=== PATIENT | male | born 1955 | race Caucasian/White ===

== ENCOUNTER 2018-03-30 19:38 | Inpatient (IN) | payer OTHER ==
[~2018-03-30] VITALS: Ht 177.8 cm; Wt 94.4 kg
[~2018-03-30 19:38] MED LIST: CELEBREX100 MG PO; CYCLOBENZAPRINE10 MG PO; FERROUS SULFAT325 MG PO; FOLIC ACID1 MG PO; GABAPENTIN400 MG PO; Multivitamins/Minerals PO; PROPRANOLOL HCL40 MG PO; PROTONIX40 MG PO; VIGAMOX3 ML OP; VITAMIN B-1100 MG PO
--- OUTSIDE RECORDS SUMMARY | 2018-03-30 19:40 | XMS REPORT ---
Author Author [facility] Address Unknown Phone Unavailable Care Team Providers Care Explosive Ordnance Disposal Technician Name Role Phone MATEUS LESLIE Unavailable Unavailable Problems This patient has no known problems. Allergies, Adverse Reactions, Alerts This patient has no known allergies or adverse reactions. Medications This patient has no known medications. Results Test Description Test Time Test Comments Text Results Atomic Results Result Comments CHEST 2 VIEWS [place] [address] Patient Name: CITLALY PRATHER MR #: [id number] : 1955 Age/Sex: 62/M Req # : [id number] Adm Physician: Ordered by: MATEUS LESLIE MD Report # : [id number] Location: ER Room/Bed: Procedure: [id number] -[id number] DX/CHEST 2 VIEWS Exam Date: 07/06/17 Exam Time : 1940 REPORT STATUS: Signed Frontal and lateral views of the chest. HISTORY: Anemia, weakness COMPARISON: None available. DISCUSSION: Lungs: Mild prominence of the central peribronchial interstitial markings. No evidence of a consolidative pneumonia or pulmonary alveolar edema. Pleura: No pleural effusion or pneumothorax. Heart and mediastinum: The cardiomediastinal silhouette appears unremarkable. Bones: Accentuation of the thoracic kyphosis and multilevel mild degenerative disc changes. Right convex curvature of the thoracic spine. Other: Diffuse scattered atherosclerotic vascular calcifications. IMPRESSION: 1. Findings which could be seen in the setting of a nonspecific bronchitis. 2. Otherwise, unremarkable. Signed by: Dr. Tasia Swain M.D. on 07/06/2017 8:50 PM Dictated By: TASIA SWAIN DO 47 Transcribed By: REBECCA on 07/06/172049 COPY TO: MATEUS LESLIE MD
[2018-03-30] MEDS ORDERED: PANTOPRAZOLE 40 MG 10ML VIAL IV ONE (19:55)
[2018-03-30] MEDS ORDERED: SODIUM CHLORIDE 0.9% 250ML 250 ML IV ONE (20:00)
[2018-03-30] MEDS ORDERED: FUROSEMIDE INJ 10 MG/ML 2 ML VIAL IV PRN (20:00)
[2018-03-30] MEDS: OCTREOTIDE ACETATE 500 MCG in SODIUM CHLORIDE 0.9% 250ML 250 ML IV SCH (20:25)
[2018-03-30 20:32] LABS: BASOPHILS % 0.4 % (0.0-1.0); EOSINOPHILS # (AUTO) 0.2 (0.0-0.4); EOSINOPHILS % 4.8 % (0.0-6.0); HEMATOCRIT 26.3 % (38.2-49.6); LYMPHOCYTES # (AUTO) 1.2 (1.0-3.2); LYMPHOCYTES % 24.1 % (18.0-39.1); MEAN CORPUSCULAR HEMOGLOBIN 27.1 pg (28-32); MEAN CORPUSCULAR HGB CONC 30.4 g/dL (31-35); MEAN CORPUSCULAR VOLUME 89.2 fL (81-99); MONOCYTES # (AUTO) 0.9 (0.2-0.8); MONOCYTES % 18.6 % (4.4-11.3); NEUTROPHILS # (AUTO) 2.5 (2.1-6.9); NEUTROPHILS % 51.3 % (38.7-80.0); PLATELET COUNT 123 x10e3/uL (140-360); RED BLOOD COUNT 2.95 x10e6/uL (4.3-5.7); RED CELL DISTRIBUTION WIDTH 28.1 % (11.7-14.4)
[2018-03-30 20:38] LABS: INR 1.27; PROTHROMBIN TIME 14.9 seconds (11.9-14.5)
[2018-03-30 20:39] LABS: PARTIAL THROMBOPLASTIN TIME 34.7 seconds (23.8-35.5)
[2018-03-30 20:46] LABS: ALANINE AMINOTRANSFERASE 26 IU/L (0-55); ALBUMIN 3.5 g/dL (3.5-5.0); ALBUMIN/GLOBULIN RATIO 0.7 (0.8-2.0); ALKALINE PHOSPHATASE 63 IU/L (40-150); ANION GAP 13.6 mmol/L (8-16); BLOOD UREA NITROGEN 8 mg/dL (7-26); BUN/CREATININE RATIO 7 (6-25); CARBON DIOXIDE 21 mmol/L (22-29); CHLORIDE 95 mmol/L (98-107); CREATINE KINASE 102 IU/L (30-200); CREATININE, SERUM 1.09 mg/dL (0.72-1.25); EST GLOMERULAR FILTRATION RATE > 60 ML/MIN (60-); GLUCOSE 104 mg/dL (74-118); LIPASE 29 U/L (8-78); MAGNESIUM 1.6 MG/DL (1.3-2.1); POTASSIUM 4.6 mmol/L (3.5-5.1); SODIUM 125 mmol/L (136-145)
--- NOTE | 2018-03-30 20:47 | Diagnostic Imaging Report ---
Portable chest x-ray INDICATION: Upper GI bleed, cirrhosis COMPARISON: Chest x-ray 07/06/2017 FINDINGS: Frontal view of the chest obtained at 2029 hours. The heart is enlarged. The aorta is ectatic. The pulmonary vascular markings are prominent and indistinct. The lungs demonstrate diffuse groundglass airspace opacities. The costophrenic angles are sharp. There is no pneumothorax. The osseous structures are intact and normal in morphology. IMPRESSION: 1. Cardiomegaly. Pericardial effusion cannot be excluded. 2. Pulmonary vascular congestion and mild pulmonary edema. Signed by: Dr. Alex Dunn MD on 03/30/2018 8:43 PM
[2018-03-30] MEDS ORDERED: COLCRYS0.6 MG PO (21:01)
[2018-03-30] MEDS ORDERED: CELEBREX100 MG PO (21:01)
[2018-03-30] MEDS ORDERED: OMEPRAZOLE40 MG PO (21:01)
[2018-03-30] MEDS ORDERED: HYDROXYZINE HCL25 MG PO (21:01)
[2018-03-30] MEDS ORDERED: SPIRONOLACTONE25 MG PO (21:01)
[2018-03-30] MEDS ORDERED: LEVOCETIRIZINE D5 MG PO (21:01)
[2018-03-30] MEDS ORDERED: PANTOPRAZOL 40MG/SOD CHL 0.9% 250 ML IV SCH (21:15)
[2018-03-30] MEDS ORDERED: PHYTONADIONE 10 MG/ML AMP PO STA (21:15)
[2018-03-30 21:23] LABS: ANISOCYTOSIS MARKED; POIKILOCYTOSIS SLIGHT; RBC MORPHOLOGY COMMENT ABNORMAL
[2018-03-30] MEDS ORDERED: SODIUM CHLORIDE 0.9% 1000ML 1,000 ML IV SCH (21:23)
[2018-03-30 21:24] LABS: HYPOCHROMASIA MODERATE
[2018-03-30] MEDS ORDERED: ONDANSETRON HCL 4 MG ORAL DISINTEGRATING TAB PO ONE (21:30)
[2018-03-30] MEDS ORDERED: ONDANSETRON HCL 4 MG ORAL DISINTEGRATING TAB PO PRN (21:30)
[2018-03-30 21:59] LABS: CLARITY,URINE CLEAR (CLEAR); COLOR,URINE YELLOW (YELLOW)
[2018-03-30 22:00] LABS: BILIRUBIN,URINE NEGATIVE (NEGATIVE); KETONES,URINE NEGATIVE (NEGATIVE); LEUKOCYTE ESTERASE ,URINE NEGATIVE (NEGATIVE); NITRITE,URINE NEGATIVE (NEGATIVE); PROTEIN,URINE DIPSTICK NEGATIVE (NEGATIVE); RBC,URINE 0-5 /HPF (0-5); URINE UROBILINOGEN 0.2 mg/dL (0.2 - 1); WBC,URINE (MAN) 0-5 /HPF (0-5)
[2018-03-30] MEDS: PANTOPRAZOL 40MG/SOD CHL 0.9% 50 ML IV SCH (22:40)
[2018-03-30 23:37] VITALS: BP 120/29
[2018-03-30 23:40] VITALS: BP 126/70
[2018-03-30 23:55] VITALS: BP 126/73
[2018-03-31] VITALS (39 sets, daily range): BP systolic 75–149; BP diastolic 28–138
[2018-03-31 01:26] LABS: BASOPHILS % 0.4 % (0.0-1.0); EOSINOPHILS # (AUTO) 0.3 (0.0-0.4); EOSINOPHILS % 6.3 % (0.0-6.0); HEMATOCRIT 22.7 % (38.2-49.6); LYMPHOCYTES # (AUTO) 1.2 (1.0-3.2); LYMPHOCYTES % 24.9 % (18.0-39.1); MEAN CORPUSCULAR HEMOGLOBIN 26.9 pg (28-32); MEAN CORPUSCULAR VOLUME 89.7 fL (81-99); MONOCYTES # (AUTO) 0.9 (0.2-0.8); MONOCYTES % 18.6 % (4.4-11.3); NEUTROPHILS # (AUTO) 2.4 (2.1-6.9); NEUTROPHILS % 49.2 % (38.7-80.0); PLATELET COUNT 106 x10e3/uL (140-360); RED BLOOD COUNT 2.53 x10e6/uL (4.3-5.7)
[2018-03-31 01:31] LABS: HEMOGLOBIN 6.8 g/dL (14.0-18.0)
[2018-03-31] MEDS: PANTOPRAZOL 40MG/SOD CHL 0.9% 50 ML IV SCH ×5 (02:00→21:06)
[2018-03-31 04:47] LABS: ANISOCYTOSIS MODERATE; PLATELET ESTIMATE ADEQUATE; PLATELET MORPHOLOGY COMMENT NORMAL; RBC MORPHOLOGY COMMENT ABNORMAL
[2018-03-31 04:48] LABS: OVALOCYTES FEW; POLYCHROMASIA FEW
[2018-03-31 04:49] LABS: POIKILOCYTOSIS MODERATE
[2018-03-31] MEDS: OCTREOTIDE ACETATE 500 MCG in SODIUM CHLORIDE 0.9% 250ML 250 ML IV SCH ×2 (05:00→16:27)
[2018-03-31] MEDS ORDERED: SODIUM CHLORIDE 0.9% 250ML 250 ML ONE ×2 (05:55→08:25)
[2018-03-31 06:07] LABS: BASOPHILS % 0.3 % (0.0-1.0); EOSINOPHILS # (AUTO) 0.2 (0.0-0.4); EOSINOPHILS % 5.4 % (0.0-6.0); HEMATOCRIT 21.5 % (38.2-49.6); LYMPHOCYTES # (AUTO) 0.8 (1.0-3.2); LYMPHOCYTES % 21.4 % (18.0-39.1); MEAN CORPUSCULAR HGB CONC 29.8 g/dL (31-35); MEAN CORPUSCULAR VOLUME 90.7 fL (81-99); MONOCYTES # (AUTO) 0.7 (0.2-0.8); MONOCYTES % 18.9 % (4.4-11.3); NEUTROPHILS % 53.5 % (38.7-80.0); PLATELET COUNT 91 x10e3/uL (140-360); RED BLOOD COUNT 2.37 x10e6/uL (4.3-5.7); RED CELL DISTRIBUTION WIDTH 27.9 % (11.7-14.4)
[2018-03-31 06:16] LABS: INR 1.44; PROTHROMBIN TIME 16.5 seconds (11.9-14.5)
[2018-03-31 06:17] LABS: PARTIAL THROMBOPLASTIN TIME 35.7 seconds (23.8-35.5)
[2018-03-31 06:27] LABS: HEMOGLOBIN 6.4 g/dL (14.0-18.0)
[2018-03-31 06:34] LABS: ALANINE AMINOTRANSFERASE 22 IU/L (0-55); ALBUMIN/GLOBULIN RATIO 0.8 (0.8-2.0); ALKALINE PHOSPHATASE 53 IU/L (40-150); ANION GAP 15.2 mmol/L (8-16); BLOOD UREA NITROGEN 10 mg/dL (7-26); BUN/CREATININE RATIO 10 (6-25); CALCIUM 8.1 mg/dL (8.4-10.2); CARBON DIOXIDE 19 mmol/L (22-29); CHLORIDE 99 mmol/L (98-107); CREATININE, SERUM 1.05 mg/dL (0.72-1.25); EST GLOMERULAR FILTRATION RATE > 60 ML/MIN (60-); GLUCOSE 121 mg/dL (74-118); POTASSIUM 5.2 mmol/L (3.5-5.1); SODIUM 128 mmol/L (136-145)
[2018-03-31 07:29] LABS: MAGNESIUM 1.2 MG/DL (1.3-2.1); PHOSPHORUS 3.9 MG/DL (2.3-4.7)
[2018-03-31 10:33] LABS: EOSINOPHILS % (MANUAL) 4 % (0-7); LYMPHOCYTES % (MANUAL) 22 % (19-48); MONOCYTES % (MANUAL) 11 % (3.4-9.0); NEUTROPHILS % (MANUAL) 62 % (40-74)
[2018-03-31 10:35] LABS: ANISOCYTOSIS SLIG; HYPOCHROMASIA MODERATE; PLATELET ESTIMATE SLIGHTLY DECREASED; PLATELET MORPHOLOGY COMMENT NORMAL; POIKILOCYTOSIS SLIG; RBC MORPHOLOGY COMMENT ABNORMAL; SMUDGE CELLS FEW; TEAR DROP CELLS FEW
[2018-03-31] MEDS ORDERED: MAGNESIUM SULFATE 2GM/50ML 50 ML IV ONE (10:45)
[2018-04-01] VITALS (7 sets, daily range): BP systolic 98–131; BP diastolic 51–72
[2018-04-01] MEDS ORDERED: THIAMINE HCL INJ 100 MG/ML 2ML VIAL IV SCH (01:03)
[2018-04-01] MEDS ORDERED: MULTIVITAMINS- 12 INJECTION 10 ML in SODIUM CHLORIDE 0.9% 1000ML 1,000 ML IV ONE (01:04)
[2018-04-01] MEDS ORDERED: FOLIC ACID 5 MG/ML VIAL IV ONE (01:06)
[2018-04-01] MEDS ORDERED: SODIUM CHLORIDE 0.9% 1000ML 1,000 ML ONE (01:10)
[2018-04-01] MEDS ORDERED: SODIUM CHLORIDE 0.9% 1000ML 1,000 ML IV ONE (01:15)
[2018-04-01] MEDS ORDERED: MULTIVITAMINS INJECTION ONE (01:25)
[2018-04-01] MEDS ORDERED: THIAMINE HCL INJ 100 MG/ML 2ML VIAL ONE (01:25)
[2018-04-01] MEDS ORDERED: FOLIC ACID 5 MG/ML VIAL ONE (01:25)
[2018-04-01] MEDS: PANTOPRAZOL 40MG/SOD CHL 0.9% 50 ML IV SCH ×5 (02:01→23:30)
[2018-04-01] MEDS: MULTIVITAMINS- 12 INJECTION 10 ML, FOLIC ACID MDV 5 MG, THIAMINE HCL INJ 100 MG in SODI... IV SCH ×2 (02:01→21:15)
[2018-04-01] MEDS: OCTREOTIDE ACETATE 500 MCG in SODIUM CHLORIDE 0.9% 250ML 250 ML IV SCH ×3 (02:13→22:27)
--- NOTE | 2018-04-01 07:00 | Diagnostic Imaging Report ---
CHEST SINGLE (PORTABLE), 04/01/2018 5:29 AM Technique: CHEST SINGLE (PORTABLE) Comparison 03/30/2018: Clinical history: Pulmonary edema Findings: See Impression Impression: 1. Stable enlarged cardiomediastinal silhouette. 2. Increased diffuse pulmonary opacities, favor edema. 3. No significant effusion evident on portable technique. Signed by: Dr Kathy Johnson MD on 04/01/2018 6:56 AM
[2018-04-01 07:07] LABS: BASOPHILS % 0.3 % (0.0-1.0); EOSINOPHILS # (AUTO) 0.2 (0.0-0.4); EOSINOPHILS % 5.4 % (0.0-6.0); HEMATOCRIT 25.8 % (38.2-49.6); HEMOGLOBIN 7.8 g/dL (14.0-18.0); LYMPHOCYTES # (AUTO) 0.6 (1.0-3.2); LYMPHOCYTES % 19.9 % (18.0-39.1); MEAN CORPUSCULAR HEMOGLOBIN 27.7 pg (28-32); MEAN CORPUSCULAR HGB CONC 30.2 g/dL (31-35); MEAN CORPUSCULAR VOLUME 91.5 fL (81-99); MONOCYTES # (AUTO) 0.7 (0.2-0.8); NEUTROPHILS # (AUTO) 1.5 (2.1-6.9); NEUTROPHILS % 51.7 % (38.7-80.0); PLATELET COUNT 90 x10e3/uL (140-360); RED BLOOD COUNT 2.82 x10e6/uL (4.3-5.7); RED CELL DISTRIBUTION WIDTH 24.7 % (11.7-14.4)
[2018-04-01 07:22] LABS: INR 1.41; PARTIAL THROMBOPLASTIN TIME 36.3 seconds (23.8-35.5); PROTHROMBIN TIME 16.2 seconds (11.9-14.5)
[2018-04-01 07:48] LABS: ALANINE AMINOTRANSFERASE 27 IU/L (0-55); ALKALINE PHOSPHATASE 53 IU/L (40-150); ANION GAP 11.5 mmol/L (8-16); BILIRUBIN,DIRECT 0.9 mg/dL (0.0-0.5); BLOOD UREA NITROGEN 10 mg/dL (7-26); BUN/CREATININE RATIO 9 (6-25); CALCIUM 8.1 mg/dL (8.4-10.2); CARBON DIOXIDE 22 mmol/L (22-29); CHLORIDE 104 mmol/L (98-107); CREATININE, SERUM 1.09 mg/dL (0.72-1.25); EST GLOMERULAR FILTRATION RATE > 60 ML/MIN (60-); GLUCOSE 128 mg/dL (74-118); MAGNESIUM 1.5 MG/DL (1.3-2.1); POTASSIUM 4.5 mmol/L (3.5-5.1); SODIUM 133 mmol/L (136-145)
[2018-04-01 08:23] LABS: % IRON SATURATION 5 % (15-50); IRON 23 ug/dL (65-175); TOTAL IRON BINDING CAPACITY 483 ug/dL (261-478); TRANSFERRIN 345 mg/dL (174-364)
[2018-04-01 09:03] LABS: FOLATE 31.6 ng/mL (7.0-15.4)
--- NOTE | 2018-04-01 11:10 | Diagnostic Imaging Report ---
PROCEDURE:US GUIDED PARACENTESIS COMPARISON:None. INDICATIONS:ASCITES FINDINGS:Limited abdominal ultrasound the right upper and lower quadrants in the left upper and lower quadrant showed no significant ascites. Paracentesis was aborted. CONCLUSION: Aborted paracentesis secondary to lack of ascites. Dictated by: Farrukh Carey M.D. on 04/01/2018 at 11:13 Electronically approved by: Farrukh Carey M.D. on 04/01/2018 at 11:13
[2018-04-01] MEDS ORDERED: FUROSEMIDE 40 MG TAB PO NR (11:15)
[2018-04-01] MEDS: IRON SUCROSE 100 MG in SODIUM CHLORIDE 0.9% 100 ML 100 ML IV SCH (12:26)
[2018-04-01] MEDS ORDERED: MIDAZOLAM HCL 2 MG/2 ML VIAL ONE (15:17)
[2018-04-01] MEDS ORDERED: FENTANYL CITRATE/PF 100MCG/2 ML INJ ONE (15:17)
[2018-04-01] MEDS ORDERED: PHYTONADIONE 10 MG/ML AMP SQ ONE (16:30)
[2018-04-01] MEDS: PROPRANOLOL HCL 10 MG TAB PO SCH (17:28)
--- NOTE | 2018-04-01 17:35 | Operative Report ---
DATE OF PROCEDURE: April 01, 2018 REFERRING PHYSICIAN: Dr. Enciso. PROCEDURE PERFORMED: Esophagogastroduodenoscopy with banding and biopsies. INDICATIONS FOR PROCEDURE: Anemia, history of melena. MEDICATION: Patient was done under MAC. Please see anesthesiologist's note. PROCEDURE: With patient in the left lateral decubitus position, flexible fiberoptic Olympus gastroscope was introduced into the esophagus under direct visualization without any difficulty. Grade 3 to 4 esophageal varices were noted. There was no active bleeding but Red Satish signs were seen. The scope was then advanced with ease into the stomach. Mucosa overlying the antrum and the body revealed some patchy erythema and there were some patchy changes that are compatible with portal hypertensive gastropathy. Biopsies were obtained from the antrum and sent to stain for H. pylori. Pylorus was of normal contour and shape. Was intubated with ease and the scope was advanced all the way to the 2nd portion of the duodenum. The scope was then withdrawn slowly and mucosa overlying the proximal 2nd portion and the duodenal bulb appeared to be within normal limits. The scope was then withdrawn back into the stomach and retroflexed. And mucosa overlying the fundus and cardia appeared to be within normal limits. The scope was then straightened out and was subsequently withdrawn. It was then fitted for banding and the scope was then re-introduced into the esophagus. Five bands were applied to 3 columns of varices. The scope was subsequently withdrawn. Patient tolerated procedure well. IMPRESSION: 1. Grade 3 to 4 esophageal varices, some with Red Satish Signs, but no active bleeding. Five bands were applied to 3 columns of varices. 2. Gastritis, biopsied. 3. Patchy portal hypertensive gastropathy. PLAN: Follow up histology. Continue current therapy. Initiate clear liquid diet. Job#: [id number] cc: DR. ANÍBAL ENCISO
[2018-04-01] MEDS ORDERED: PROPOFOL IV EMULSION 10 MG/ML 50 ML VIAL ONE (18:18)
[2018-04-01] MEDS ORDERED: LIDOCAINE HCL 2% LOCAL INJ 5 ML SDV VIAL INJ ONE (18:18)
[2018-04-02] VITALS (7 sets, daily range): BP systolic 100–145; BP diastolic 55–79
[2018-04-02] MEDS: MULTIVITAMINS- 12 INJECTION 10 ML, FOLIC ACID MDV 5 MG, THIAMINE HCL INJ 100 MG in SODI... IV SCH ×2 (01:46→19:30)
[2018-04-02] MEDS: PANTOPRAZOL 40MG/SOD CHL 0.9% 50 ML IV SCH ×2 (02:58→04:30)
[2018-04-02] MEDS: OCTREOTIDE ACETATE 500 MCG in SODIUM CHLORIDE 0.9% 250ML 250 ML IV SCH (05:11)
[2018-04-02 07:40] LABS: BASOPHILS % 0.3 % (0.0-1.0); EOSINOPHILS # (AUTO) 0.1 (0.0-0.4); EOSINOPHILS % 4.9 % (0.0-6.0); HEMATOCRIT 25.3 % (38.2-49.6); HEMOGLOBIN 7.6 g/dL (14.0-18.0); LYMPHOCYTES # (AUTO) 0.6 (1.0-3.2); LYMPHOCYTES % 19.4 % (18.0-39.1); MEAN CORPUSCULAR HEMOGLOBIN 27.2 pg (28-32); MEAN CORPUSCULAR VOLUME 90.7 fL (81-99); MONOCYTES # (AUTO) 0.6 (0.2-0.8); MONOCYTES % 19.4 % (4.4-11.3); NEUTROPHILS # (AUTO) 1.6 (2.1-6.9); NEUTROPHILS % 55.3 % (38.7-80.0); PLATELET COUNT 88 x10e3/uL (140-360); RED BLOOD COUNT 2.79 x10e6/uL (4.3-5.7); RED CELL DISTRIBUTION WIDTH 24.4 % (11.7-14.4)
[2018-04-02 08:02] LABS: ALANINE AMINOTRANSFERASE 27 IU/L (0-55); ALBUMIN 2.9 g/dL (3.5-5.0); ALKALINE PHOSPHATASE 49 IU/L (40-150); ANION GAP 10.1 mmol/L (8-16); BILIRUBIN,DIRECT 0.8 mg/dL (0.0-0.5); BLOOD UREA NITROGEN 7 mg/dL (7-26); BUN/CREATININE RATIO 7 (6-25); CALCIUM 7.7 mg/dL (8.4-10.2); CARBON DIOXIDE 22 mmol/L (22-29); CHLORIDE 107 mmol/L (98-107); CREATININE, SERUM 0.98 mg/dL (0.72-1.25); EST GLOMERULAR FILTRATION RATE > 60 ML/MIN (60-); GLUCOSE 145 mg/dL (74-118); POTASSIUM 4.1 mmol/L (3.5-5.1); SODIUM 135 mmol/L (136-145)
[2018-04-02] MEDS: PROPRANOLOL HCL 10 MG TAB PO SCH ×2 (08:39→16:45)
[2018-04-02] MEDS: PANTOPRAZOLE 40 MG 10ML VIAL IV SCH ×2 (08:39→16:44)
[2018-04-02 09:07] LABS: ANISOCYTOSIS SLIGHT; BAND NEUTROPHILS % (MANUAL) 1 %; EOSINOPHILS % (MANUAL) 1 % (0-7); LYMPHOCYTES % (MANUAL) 19 % (19-48); MONOCYTES % (MANUAL) 10 % (3.4-9.0); NEUTROPHILS % (MANUAL) 69 % (40-74); NUCLEATED RED BLOOD CELLS 1; PLATELET ESTIMATE MODERATELY DECREASED; PLATELET MORPHOLOGY COMMENT NORMAL; RBC MORPHOLOGY COMMENT ABNORMAL
[2018-04-02] MEDS: IRON SUCROSE 100 MG in SODIUM CHLORIDE 0.9% 100 ML 100 ML IV SCH (12:43)
[2018-04-02] MEDS ORDERED: PROPRANOLOL HCL 40 MG TAB PO ONE (23:00)
[2018-04-03] VITALS (8 sets, daily range): BP systolic 105–138; BP diastolic 56–74
[2018-04-03 07:27] LABS: BASOPHILS % 0.3 % (0.0-1.0); EOSINOPHILS # (AUTO) 0.1 (0.0-0.4); EOSINOPHILS % 4.3 % (0.0-6.0); HEMATOCRIT 25.8 % (38.2-49.6); HEMOGLOBIN 7.7 g/dL (14.0-18.0); LYMPHOCYTES # (AUTO) 0.6 (1.0-3.2); LYMPHOCYTES % 19.7 % (18.0-39.1); MEAN CORPUSCULAR HEMOGLOBIN 27.4 pg (28-32); MEAN CORPUSCULAR HGB CONC 29.8 g/dL (31-35); MEAN CORPUSCULAR VOLUME 91.8 fL (81-99); MONOCYTES # (AUTO) 0.5 (0.2-0.8); MONOCYTES % 16.8 % (4.4-11.3); NEUTROPHILS # (AUTO) 1.8 (2.1-6.9); NEUTROPHILS % 58.6 % (38.7-80.0); PLATELET COUNT 99 x10e3/uL (140-360); RED BLOOD COUNT 2.81 x10e6/uL (4.3-5.7); RED CELL DISTRIBUTION WIDTH 23.9 % (11.7-14.4)
[2018-04-03] MEDS ORDERED: SODIUM CHLORIDE 0.9% 250ML 250 ML IV ONE (08:15)
[2018-04-03] MEDS: PROPRANOLOL HCL 10 MG TAB PO SCH ×3 (09:15→20:17)
[2018-04-03] MEDS: PANTOPRAZOLE 40 MG 10ML VIAL IV SCH ×2 (09:15→16:40)
[2018-04-03 10:36] LABS: LYMPHOCYTES % (MANUAL) 22 % (19-48); NEUTROPHILS % (MANUAL) 64 % (40-74)
[2018-04-03 10:37] LABS: EOSINOPHILS % (MANUAL) 4 % (0-7); MONOCYTES % (MANUAL) 10 % (3.4-9.0); RBC MORPHOLOGY COMMENT NORMAL
[2018-04-03 11:15] LABS: PLATELET ESTIMATE SLIGHTLY DECREASED; PLATELET MORPHOLOGY COMMENT NORMAL
[2018-04-03] MEDS: IRON SUCROSE 100 MG in SODIUM CHLORIDE 0.9% 100 ML 100 ML IV SCH (11:41)
[2018-04-03] MEDS ORDERED: SODIUM CHLORIDE 0.9% 250ML 500 ML ONE (16:15)
[2018-04-03] MEDS ORDERED: FUROSEMIDE INJ 10 MG/ML 4 ML VIAL IV ONE (23:00)
[2018-04-04] VITALS: BP 138/68
[2018-04-04 04:00] VITALS: BP_SYST 128; BP_SYST 138; BP_DIAS 66; BP_DIAS 68
[2018-04-04 08:02] VITALS: BP 132/70
[2018-04-04] MEDS: PANTOPRAZOLE 40 MG 10ML VIAL IV SCH (08:45)
[2018-04-04] MEDS: PROPRANOLOL HCL 10 MG TAB PO SCH (08:45)
[2018-04-04 09:06] LABS: BASOPHILS % 0.5 % (0.0-1.0); EOSINOPHILS # (AUTO) 0.2 (0.0-0.4); EOSINOPHILS % 4.3 % (0.0-6.0); HEMATOCRIT 30.6 % (38.2-49.6); HEMOGLOBIN 9.6 g/dL (14.0-18.0); LYMPHOCYTES # (AUTO) 0.7 (1.0-3.2); LYMPHOCYTES % 17.9 % (18.0-39.1); MEAN CORPUSCULAR HEMOGLOBIN 28.1 pg (28-32); MEAN CORPUSCULAR HGB CONC 31.4 g/dL (31-35); MEAN CORPUSCULAR VOLUME 89.5 fL (81-99); MONOCYTES # (AUTO) 0.5 (0.2-0.8); MONOCYTES % 13.8 % (4.4-11.3); NEUTROPHILS # (AUTO) 2.3 (2.1-6.9); PLATELET COUNT 107 x10e3/uL (140-360); RED BLOOD COUNT 3.42 x10e6/uL (4.3-5.7); RED CELL DISTRIBUTION WIDTH 22.8 % (11.7-14.4)
--- NOTE | 2018-04-04 15:54 | Discharge Summary ---
PRIMARY CARE DOCTOR: [facility] FINAL DIAGNOSIS: Acute blood loss anemia due to acute esophageal variceal bleed. SECONDARY DIAGNOSES 1. Alcoholic cirrhosis. 2. Iron deficiency anemia. MACHINE TRIMMER: ARMANDO Leahy. PROCEDURES/STUDIES PERFORMED 1. Esophagogastroduodenoscopy with 5 bands placed. 2. Four units of packed red blood cells transfusion. HISTORY: Per H and P. HOSPITAL COURSE: The patient was admitted. Initially, he was transfused with 2 units. Paracentesis was attempted. However, he did not have enough ascites. Subsequently, the patient underwent EGD where 5 bands were placed. The patient did well afterwards, tolerating p.o. His hemoglobin was 7.6. The patient received another 2 units of packed red blood cells per GI's recommendation. At the time of discharge, his hemoglobin is 9.6. The patient also received intravenous iron while here. I have updated his primary care doctor about this hospitalization as well. The patient was seen and examined. It took 32 minutes total to discharge this patient. CONDITION ON DISCHARGE: Stable. DISCHARGE MEDICATIONS: Please see medication reconciliation form. KALYN ENCISO M.D. Job#: [id number] cc:SUBHASH MONROY MD
== END 2018-04-04 12:08 | disposition home or self-care (01) | DRG 432 ==
LOC: ER 19:38 → ERHOLD 21:31 → ICU 23:23 → MED/SURG 03-31 19:18
PROVIDERS: ADMIT Internal Medicine; ATTEND Internal Medicine
PROC: 30233K1 Transfusion of Nonautologous Frozen Plasma into Peripheral Vein, Percutaneous Approach (ICD-10-PCS; 2018-03-31)
PROC: 30233N1 Transfusion of Nonautologous Red Blood Cells into Peripheral Vein, Percutaneous Approach (ICD-10-PCS; 2018-03-31)
PROC: 06L38CZ Occlusion of Esophageal Vein with Extraluminal Device, Via Natural or Artificial Opening Endoscopic (ICD-10-PCS; 2018-04-01)
PROC: 0W9G3ZZ Drainage of Peritoneal Cavity, Percutaneous Approach (ICD-10-PCS; 2018-04-01)
PROC: 0DB68ZX Excision of Stomach, Via Natural or Artificial Opening Endoscopic, Diagnostic (ICD-10-PCS; principal; 2018-04-01 13:30)
PROC: 0DB78ZX Excision of Stomach, Pylorus, Via Natural or Artificial Opening Endoscopic, Diagnostic (ICD-10-PCS; 2018-04-01 13:30)
DX: K70.30 Alcoholic cirrhosis of liver without ascites (principal); I85.11 Secondary esophageal varices with bleeding; K29.21 Alcoholic gastritis with bleeding; D62 Acute posthemorrhagic anemia; E87.1 Hypo-osmolality and hyponatremia; D61.818 Other pancytopenia; K76.6 Portal hypertension; E83.42 Hypomagnesemia; E87.6 Hypokalemia; M10.9 Gout, unspecified; D50.9 Iron deficiency anemia, unspecified; K21.9 Gastro-esophageal reflux disease without esophagitis; K31.89 Other diseases of stomach and duodenum
CPT/HCPCS: 36415; 43239; 49083; 71045; 80048; 80053; 80076; 81001; 82270; 82550; 82553; 82607; 82746; 82948; 83540; 83690; 83735; 83880; 84100; 84132; 84466; 84484; 85014; 85018; 85025; 85045; 85610; 85730; 86850; 86870; 86880; 86900; 86905; 86920; 86922; 88305; 88312; 93005; 96361; 96365; 96366; 99001; 99284; J1756; J1940; J2001; J2250; J2353; J3411; J3430; J7030; J7050; P9016; P9017